=== PATIENT | female | born 1995 | race Caucasian/White ===

== ENCOUNTER 2020-09-01 07:52 | Inpatient (IN) ==
[2020-09-01] MEDS ORDERED: ALUM/MAG/SIMETH/LIDO VISC 1:1 30 ML BOTTLE PO STA (08:20)
[2020-09-01] MEDS ORDERED: ONDANSETRON 4 MG/2 ML VIAL IV PRN ×2 (08:21→13:25)
[2020-09-01] MEDS: LACTATED RINGERS 1,000 ML IV SCH ×2 (08:35→11:56)
[2020-09-01] MEDS ORDERED: MEPERIDINE 50 MG/1 ML VIAL IV ONE (08:48)
[2020-09-01 08:49] LABS: Basophils % 0.1 % (0.0-0.8); Eosinophils % 0.1 % (0.00-10.9); Hematocrit 29.4 VOL% (35.7-47.0); Hemoglobin 9.5 GM/DL (12.0-16.0); Immature Granulocytes % 0.8 %; Lymphocytes # 1.4 10*3/uL (1.4-4.0); Mean Corpuscular HGB Conc 32.3 GM/DL (32-36); Mean Corpuscular Volume 85.7 FL (87-102); Platelet Count 321 T/CUMM (130-400); Red Blood Count 3.43 MC/CUMM (3.8-5.5); Red Cell Distribution Width 16.8 % (9.3-17.3); White Blood Count 12.4 T/CUMM (4-12)
[2020-09-01 08:56] LABS: Bilirubin,Urine Negative (Negative); Blood, Urine Negative (Negative); Glucose,Urine (UA) Negative (Negative); Ketones,Urine Negative (Negative); Mucus,Urine Many /LPF (Occasional); Nitrite,Urine Negative (Negative); Protein,Urine Negative; RBC,Urine 1 /HPF (0-4); Squamous Epithelial Cell,Urine Occasional /HPF (0-10); Urine Appearance CLEAR (Clear); Urine Color Yellow (Yellow); Urine Specific Gravity 1.018 (1.001-1.035); Urine Urobilinogen < 2.0 EU/DL (0.2-1.0)
[2020-09-01 09:04] LABS: INR 0.9; PT Patient Result 10.2 SECS (10.5-12.0); Partial Thromboplastin Time 22.8 SECS (23.9-33.8)
[2020-09-01 09:09] LABS: Albumin 2.5 G/DL (3.4-5.0); Bilirubin,Direct 0.11 MG/DL (0.0-0.20); Bilirubin,Total 0.4 MG/DL (0.2-1.0); Calcium 9.4 MG/DL (8.5-10.1); Osmolality,Calculated 272.7 MOS/KG (273-304); Potassium 3.6 MMOL/L (3.5-5.1); Total Protein 6.4 G/DL (6.4-8.2); Uric Acid 4.8 MG/DL (2.6-6.0)
[2020-09-01 09:15] LABS: Protein/Creatinine Ratio,Urine 0.2 RATIO
[2020-09-01] MEDS ORDERED: FAMOTIDINE 20 MG/2 ML VIAL IV ONE ×3 (10:47→12:00)
[2020-09-01] MEDS ORDERED: CITRIC ACID/SODIUM CITRATE 30 ML UDCUP ONE (10:47)
[2020-09-01] MEDS ORDERED: TRANEXAMIC ACID 1,000 MG/10 ML VIAL ONE (10:48)
[2020-09-01] MEDS ORDERED: OXYTOCIN/LR 20 UNIT/1,000 ML BAG IV ONE ×3 (10:48→14:42)
[2020-09-01] MEDS ORDERED: miSOPROStoL 200 MCG TABLET ONE (10:48)
[2020-09-01] MEDS ORDERED: SODIUM CHLORIDE 0.9% 0 ML IV ONE (10:49)
[2020-09-01] MEDS ORDERED: METHYLERGONOVINE 0.2 MG/1 ML AMP ONE (10:49)
[2020-09-01] MEDS ORDERED: CARBOPROST TROMETHAMINE 250 MCG/ML AMP IM ONE ×3 (10:49→12:51)
[2020-09-01] MEDS ORDERED: ceFAZolin 2,000 MG/50 ML DUPLEX IV ONE ×2 (10:54→12:00)
[2020-09-01] MEDS ORDERED: CITRIC ACID/SODIUM CITRATE 30 ML UDCUP PO ONE ×2 (10:54→12:00)
[2020-09-01] MEDS ORDERED: ONDANSETRON 4 MG/2 ML VIAL ONE (12:07)
[2020-09-01] MEDS ORDERED: BUPIVACAINE SPINAL 0.75% 2 ML AMP SPINAL ONE (12:07)
[2020-09-01] MEDS ORDERED: KETOROLAC 30 MG/1 ML VIAL ONE (12:43)
[2020-09-01] MEDS ORDERED: ACETAMINOPHEN INJ 1,000 MG/100 ML VIAL IV ONE (12:43)
[2020-09-01] MEDS ORDERED: miSOPROStoL 200 MCG TABLET VAG ONE (12:45)
[2020-09-01] MEDS ORDERED: fentaNYL 100 MCG/2 ML VIAL ONE (12:57)
[2020-09-01 13:06] LABS: Cord Arterial Blood HCO3 27.8 MMOL/L
[2020-09-01 13:09] LABS: Cord Venous Blood HCO3 25.3 MMOL/L; Cord Venous Blood PCO2 47.6 MMHG; Cord Venous Blood PO2 27.7 MMHG
[2020-09-01] MEDS ORDERED: MEASLES/MUMPS/RUBELLA VACCINE 0.5 ML VIAL SUBCUT ONE (13:25)
[2020-09-01] MEDS ORDERED: BISACODYL 10 MG SUPP RECTAL PRN (13:25)
[2020-09-01] MEDS ORDERED: RHO(D) IMMUNE GLOBULIN 300 MCG SYRINGE IM ONE (13:25)
[2020-09-01] MEDS ORDERED: HYDROCORTISONE 2.5% RECTAL CREAM 30 GM TUBE TOP PRN (13:25)
[2020-09-01] MEDS ORDERED: WITCH HAZEL PADS 100/JAR TOP PRN (13:25)
[2020-09-01] MEDS ORDERED: DIPH/TET/ACEL PERT BOOSTER VACCINE 0.5 ML VIAL IM ONE (13:25)
[2020-09-01] MEDS ORDERED: oxyCODONE/ACETAMINOPHEN 5-325 MG TABLET PO PRN (13:25)
[2020-09-01] MEDS ORDERED: LANOLIN 50% CREAM 0.3 OZ TUBE TOP PRN (13:25)
[2020-09-01] MEDS ORDERED: BENZOCAINE 20%/MENTHOL 0.5% SPRAY 56 GM CAN TOP PRN (13:25)
[2020-09-01] MEDS ORDERED: ACETAMINOPHEN 325 MG TABLET PO PRN (13:25)
[2020-09-01] MEDS: LABETALOL 100 MG TABLET PO SCH ×3 (15:32→23:24)
[2020-09-01] MEDS: ACETAMINOPHEN 500 MG TABLET PO SCH ×2 (18:10→23:23)
[2020-09-01] MEDS: KETOROLAC 30 MG/1 ML VIAL IV SCH (18:11)
[2020-09-01] MEDS: DOCUSATE SODIUM 100 MG CAPSULE PO SCH (20:07)
[2020-09-02] MEDS: KETOROLAC 30 MG/1 ML VIAL IV SCH ×2 (00:35→06:08)
[2020-09-02] MEDS: oxyCODONE/ACETAMINOPHEN 5-325 MG TABLET PO PRN ×2 (04:02→16:20)
[2020-09-02 05:16] LABS: Basophils % 0.1 % (0.0-0.8); Eosinophils % 0.2 % (0.00-10.9); Hematocrit 23.5 VOL% (35.7-47.0); Hemoglobin 7.7 GM/DL (12.0-16.0); Immature Granulocytes % 0.7 %; Immature Granulocytes Absolute 0.07 #; Lymphocytes # 1.4 10*3/uL (1.4-4.0); Lymphocytes % 13.5 % (21.3-54.2); Mean Corpuscular HGB Conc 32.8 GM/DL (32-36); Mean Corpuscular Volume 86.7 FL (87-102); Mean Platelet Volume 10.4 FL (9.6-12.0); Monocytes % 9.5 % (1.7-12.7); Red Cell Distribution Width 16.9 % (9.3-17.3)
[2020-09-02 05:25] LABS: Platelet Count 245 T/CUMM (130-400); Red Blood Count 2.71 MC/CUMM (3.8-5.5)
[2020-09-02] MEDS: ACETAMINOPHEN 500 MG TABLET PO SCH (05:53)
[2020-09-02] MEDS: LABETALOL 100 MG TABLET PO SCH ×4 (06:43→21:47)
[2020-09-02] MEDS: PANTOPRAZOLE 40 MG TABLET PO SCH (08:40)
[2020-09-02] MEDS: DOCUSATE SODIUM 100 MG CAPSULE PO SCH ×2 (08:40→21:47)
[2020-09-02] MEDS: MULTIVITAMIN (PRENATAL) TABLET PO SCH (08:40)
[2020-09-02] MEDS: IBUPROFEN 800 MG TABLET PO PRN ×2 (09:00→16:20)
[2020-09-02] MEDS: LABETALOL 200 MG TABLET PO SCH ×2 (16:20→21:47)
[2020-09-03] MEDS: oxyCODONE/ACETAMINOPHEN 5-325 MG TABLET PO PRN (00:14)
[2020-09-03] MEDS: LABETALOL 200 MG TABLET PO SCH (06:12)
[2020-09-03] MEDS: LABETALOL 100 MG TABLET PO SCH (06:12)
[2020-09-03] MEDS: IBUPROFEN 800 MG TABLET PO PRN (06:50)
[2020-09-03 09:21] VITALS: BP 133/69
[2020-09-03] MEDS: MULTIVITAMIN (PRENATAL) TABLET PO SCH (09:45)
[2020-09-03] MEDS: PANTOPRAZOLE 40 MG TABLET PO SCH (09:45)
[2020-09-03] MEDS: DOCUSATE SODIUM 100 MG CAPSULE PO SCH (09:45)
== END 2020-09-03 14:07 | disposition home or self-care (01) | DRG 788 ==
LOC: N.LDOUT 07:52 → N.LD 07:54 → N.OB 15:00
PROVIDERS: ADMIT Specialist; ATTEND Specialist
PROC: LDCSECT (ICD-10-PCS; 2020-09-01 12:10)